=== PATIENT | female | born 1980 ===

== ENCOUNTER 2025-05-24 05:43 | Day surgery (SDC) | payer BC, SELFPAY ==
[2025-05-12 14:12] VITALS: BMI 28.6
[2025-05-12 14:32] LABS: Hematocrit 37.0 % (37.0-47.0); Hemoglobin 12.5 g/dL (12.0-16.0); Mean Corp Hgb Conc. 33.8 g/dL (33.0-37.0); Mean Corpuscular Volume 90.5 fL (81.0-99.0); Platelet Count 180 10^3/uL (130-400); Red Cell Dist. Width 12.1 % (11.5-14.5)
[2025-05-12 14:55] LABS: ALT (SGPT) 18 U/L (0-35); AST (SGOT) 21 U/L (14-36); Albumin 4.3 g/dl (3.5-5.0); Alkaline Phosphatase 61 U/L (38-126); Blood Urea Nitrogen 13 mg/dl (7-17); Calcium 8.7 mg/dl (8.4-10.2); Carbon Dioxide 26 mmol/L (22-30); Chloride 107 mmol/L (98-107); Estimated Creatinine Clearance 89 ml/min; Glucose 68 mg/dl (70-99); Potassium 4.0 mmol/L (3.5-5.1); Sodium 140 mmol/L (135-145); Total Protein 6.7 g/dl (6.3-8.2); eGFR > 60.00
[2025-05-12 15:44] VITALS: BMI 28.6
[2025-05-24] VITALS (10 sets, daily range): BP systolic 112–136; BP diastolic 58–71; BMI 28.6
[2025-05-24] MEDS: METHOCARBAMOL 1500 MG PO (06:34)
[2025-05-24] MEDS: CELEBREX 200 MG PO (06:34)
[2025-05-24] MEDS: TYLENOL 1000 MG PO (06:34)
[2025-05-24] MEDS: LYRICA 150 MG PO (06:34)
[2025-05-24] MEDS: NORMOSOL-R/PLASMALYTE-A 1000 IV (06:35)
[2025-05-24 06:59] LABS: HCG, Urine Qualitative Screen Negative
== END 2025-05-24 11:35 | disposition home or self-care (01) ==
LOC: SDS 05:43
PROVIDERS: ATTENDING PHYSICIAN Orthopaedic Surgery Orthopaedic Surgery of the Spine; FAMILY PHYSICIAN Family Medicine
DX: G95.89 Other specified diseases of spinal cord (principal); M47.12 Other spondylosis with myelopathy, cervical region
CPT/HCPCS: 22554; 20930; C1776; 36415; 72020; 80053; 81025; 85027; 86850; 86900; 86901; 87070; C1713